=== PATIENT | male | born 1965 | race African-American/Black ===

== ENCOUNTER → 2023-12-03 | Outpatient (CLI) | payer MEDICAID | END | disposition home or self-care (01) | LOC: EDBD 12:19 → LAB 12:19 | PROVIDERS: ATTEND Urology | DX: N40.1 Benign prostatic hyperplasia with lower urinary tract symptoms (principal) | CPT/HCPCS: 84153 ==

== ENCOUNTER 2024-03-15 08:15 | Day surgery (SDC) | payer MEDICAID ==
[2024-03-10 11:29] LABS: Urine Bacteria None Seen /hpf (None Seen)
[2024-03-10 12:09] LABS: INR 1.05 (0.9-1.15); Partial Thromboplastin Time 28.7 SEC (24.5-34.5); Prothrombin Time 11.1 sec (9.3-11.8)
[2024-03-10 12:10] LABS: Alanine Aminotransferase 29 U/L (7-40); Albumin 4.6 g/dL (3.2-4.8); Alkaline Phosphatase 97 U/L (46-116); Anion Gap 4 (5-15); Aspartate Aminotransferase 28 U/L (13-40); BUN/Creatinine Ratio 14.4 (10.0-20.0); Bilirubin, Total 0.5 mg/dL (0.2-1.0); Blood Urea Nitrogen 16 mg/dL (9-23); Calcium 9.6 mg/dL (8.5-10.1); Carbon Dioxide 30 mmol/L (20-30); Chloride 108 mmol/L (98-107); Glucose 92 mg/dL (74-106); Potassium 4.4 mmol/L (3.5-5.1); Sodium 142 mmol/L (136-145); Total Protein 7.2 g/dL (5.7-8.2)
[2024-03-10 12:11] LABS: Basophils # (auto) 0 10 ^3/uL (0-0.2); Basophils % (auto) 0.6 % (0.0-2.0); Eosinophils # (auto) 0.2 10 ^3/uL (0-0.8); Eosinophils % (auto) 3.6 % (0.0-7.0); Hematocrit 44.3 % (41.0-53.0); Hemoglobin 14.8 g/dL (13.5-17.5); Lymphocytes # (auto) 1.6 10 ^3/uL (0.4-5.4); Lymphocytes % (auto) 29.8 % (10.0-50.0); Mean Corpuscular Hemoglobin 31.6 pg (28.0-32.0); Mean Corpuscular Hgb Conc. 33.5 g/dL (32.0-36.0); Mean Corpuscular Volume 94.2 fL (80.0-100.0); Monocytes # (auto) 0.5 10 ^3/uL (0-1.3); Monocytes % (auto) 8.3 % (0.0-12.0); Neutrophils # (auto) 3.1 10 ^3/uL (1.6-8.6); Neutrophils % (auto) 57.7 % (37.0-80.0); Nucleated Red Blood Cells % 0.1 %; Red Cell Distribution Width 14.6 % (11.8-14.3); White Blood Cell 5.4 10^3/uL (4.4-10.8)
[2024-03-10 12:15] LABS: Urine Blood Negative /uL (Negative); Urine Clarity Clear (Clear); Urine Color Yellow (Yellow); Urine Mucus FEW (None Seen); Urine Protein, UAD TRACE (Negative); Urine Specific Gravity 1.031 (1.001-1.035); Urine Urobilinogen Normal (Negative); Urine WBC 18 /hpf (0 - 3); Urine pH 6.5 (5.0-9.0)
[~2024-03-15] VITALS: Ht 177.8 cm; Wt 77.1 kg
[~2024-03-15 08:15] MED LIST: AMLO1TAB22 PO; ASPI-378 OR; ATOR20TA PO; LISI20TA56 PO; TAMS-35 PO
[2024-03-15] MEDS ORDERED: MIDAZOLAM HCL 2MG/2ML 2ml VIAL (1mg/ml) ONE (09:14)
[2024-03-15] MEDS ORDERED: fentaNYL CITRATE 100 MCG/2 ML VL ONE (09:14)
[2024-03-15] MEDS ORDERED: SODIUM CHLORIDE LOCK 10 ML ONE (09:15)
[2024-03-15] MEDS ORDERED: ONDANSETRON HCL 4 MG/2 ML VIAL ONE (09:15)
[2024-03-15] MEDS ORDERED: PROPOFOL 10 MG/ML 20 ML IV ONE ×2 (09:15→10:52)
[2024-03-15] MEDS ORDERED: KETAMINE 50mg/ML 1ml syringe ONE (09:20)
[2024-03-15] MEDS ORDERED: CIPROFLOXACIN 400MG/200ML 200 ML IV ONE (09:42)
[2024-03-15] MEDS ORDERED: LIDOCAINE 1% INJ PF 5ML AMP ONE ×2 (09:59→10:29)
[2024-03-15] MEDS ORDERED: LIDOCAINE HCL 2% TOP JELLY 5ML TOP ONE (09:59)
[2024-03-15] MEDS ORDERED: HYDROmorphone HCL 2 MG/ML VL/or syr IV PRN ×2 (10:00)
[2024-03-15] MEDS ORDERED: METOCLOPRAMIDE HCL 5MG/ml INJ 2ml VIAL IV ONE (10:00)
[2024-03-15] MEDS ORDERED: KETOROLAC TROMETH 30 MG/ML 1ML VIAL IV ONE (10:00)
[2024-03-15] MEDS ORDERED: MORPHINE SULFATE INJ 2 MG/ml SYRG IV PRN (10:00)
[2024-03-15] MEDS ORDERED: MEPERIDINE HCL (50 MG/ML) 1 ML VIAL ONE (10:05)
[2024-03-15 11:02] VITALS: PULSE 72; RESP 12; O2SAT 100
[2024-03-15] MEDS: hydrALAZINE HCL 20 MG/ML VL ONE (12:29)
[2024-03-15] MEDS ORDERED: hydrALAZINE HCL 20 MG/ML VL IV ONE (12:30)
[2024-03-15 13:00] VITALS: BP 154/96; PULSE 64; RESP 17; O2SAT 96
== END 2024-03-15 13:30 | disposition home or self-care (01) ==
LOC: SUR 08:15
PROVIDERS: ATTEND Urology
DX: N40.1 Benign prostatic hyperplasia with lower urinary tract symptoms (principal); J44.9 Chronic obstructive pulmonary disease, unspecified; I10 Essential (primary) hypertension; E78.5 Hyperlipidemia, unspecified; F41.9 Anxiety disorder, unspecified; F32.A Depression, unspecified; F17.210 Nicotine dependence, cigarettes, uncomplicated; G89.29 Other chronic pain; Z79.82 Long term (current) use of aspirin; Z79.899 Other long term (current) drug therapy; Z98.890 Other specified postprocedural states
CPT/HCPCS: 36415; 52441; 52442; 80053; 81001; 85025; 85610; 85730; 87086; 93005; C1769; J0360; J0744; J2175; J2250; J2405; J2704; J3010; J7030; L8699

== ENCOUNTER 2024-04-28 16:57 | Inpatient (IN) | payer MEDICAID ==
[~2024-04-28] VITALS: Ht 177.8 cm; Wt 76.3 kg
[2024-04-28 17:57] LABS: Urine Bacteria None Seen /hpf (None Seen)
[2024-04-28 18:11] LABS: Urine Blood 2+ /uL (Negative); Urine Clarity Clear (Clear); Urine Color Yellow (Yellow); Urine Mucus FEW (None Seen); Urine Protein, UAD 1+ (Negative); Urine Specific Gravity 1.027 (1.001-1.035); Urine Urobilinogen Normal (Negative); Urine WBC 50 /hpf (0 - 3); Urine pH 5.5 (5.0-9.0)
[2024-04-28 18:14] LABS: Basophils # (auto) 0 10 ^3/uL (0-0.2); Basophils % (auto) 0.8 % (0.0-2.0); Eosinophils # (auto) 0.3 10 ^3/uL (0-0.8); Eosinophils % (auto) 6.8 % (0.0-7.0); Hematocrit 42.2 % (41.0-53.0); Hemoglobin 14.3 g/dL (13.5-17.5); Lymphocytes # (auto) 1.5 10 ^3/uL (0.4-5.4); Lymphocytes % (auto) 30.1 % (10.0-50.0); Mean Corpuscular Hemoglobin 31.9 pg (28.0-32.0); Mean Corpuscular Hgb Conc. 33.9 g/dL (32.0-36.0); Mean Corpuscular Volume 94.1 fL (80.0-100.0); Monocytes # (auto) 0.4 10 ^3/uL (0-1.3); Neutrophils # (auto) 2.7 10 ^3/uL (1.6-8.6); Neutrophils % (auto) 54.3 % (37.0-80.0); Nucleated Red Blood Cells % 0.1 %; Red Blood Cells 4.49 10^6/uL (4.5-5.90); Red Cell Distribution Width 14.6 % (11.8-14.3); White Blood Cell 4.9 10^3/uL (4.4-10.8)
[2024-04-28 18:25] LABS: Chloride 112 mmol/L (98-107); Potassium 3.9 mmol/L (3.5-5.1); Sodium 141 mmol/L (136-145)
[2024-04-28 18:26] LABS: Anion Gap 2 (5-15); Carbon Dioxide 27 mmol/L (20-30)
[2024-04-28 18:27] LABS: Calcium 9.5 mg/dL (8.5-10.1)
[2024-04-28 18:31] LABS: Glucose 104 mg/dL (74-106)
[2024-04-28 18:32] LABS: BUN/Creatinine Ratio 11.7 (10.0-20.0); Blood Urea Nitrogen 13 mg/dL (9-23)
[2024-04-28 20:30] VITALS: PULSE 64; RESP 16; O2SAT 97
[2024-04-28] MEDS: cefTRIAXone 1GM/50ML D5W 50 ML IV ONE (20:36)
[2024-04-28] MEDS ORDERED: ACETAMINOPHEN 325 MG TAB PO PRN (21:15)
[2024-04-28] MEDS ORDERED: hydrALAZINE HCL 20 MG/ML VL IV PRN (21:15)
[2024-04-28] MEDS ORDERED: ONDANSETRON HCL 4 MG/2 ML VIAL IV PRN (21:15)
[2024-04-28] MEDS ORDERED: DOCUSATE SOD 100 MG CAP PO PRN (21:15)
[2024-04-28] MEDS: SODIUM CHLOR 0.9% PF (SALINE LOCK) 10ML VIAL/SYR IV SCH (21:56)
[2024-04-28] MEDS: ATORVASTATIN 20 MG TAB PO SCH (21:59)
[2024-04-28] MEDS ORDERED: MORPHINE SULFATE INJ 2 MG/ml SYRG IV PRN (23:45)
[2024-04-28] MEDS ORDERED: NITROGLYCERIN 0.4 MG SL TAB SL PRN (23:45)
[2024-04-29 04:30] VITALS: BP 143/98; PULSE 74; RESP 18; TEMP 98.3; O2SAT 99
[2024-04-29 05:00] VITALS: BP 141/97; PULSE 74; RESP 18; TEMP 98.3; O2SAT 98
[2024-04-29 07:07] LABS: Basophils # (auto) 0 10 ^3/uL (0-0.2); Basophils % (auto) 0.6 % (0.0-2.0); Eosinophils # (auto) 0.4 10 ^3/uL (0-0.8); Eosinophils % (auto) 7.1 % (0.0-7.0); Hematocrit 38.8 % (41.0-53.0); Lymphocytes % (auto) 37.6 % (10.0-50.0); Mean Corpuscular Hemoglobin 31.7 pg (28.0-32.0); Mean Corpuscular Hgb Conc. 33.5 g/dL (32.0-36.0); Mean Corpuscular Volume 94.5 fL (80.0-100.0); Monocytes # (auto) 0.5 10 ^3/uL (0-1.3); Monocytes % (auto) 8.9 % (0.0-12.0); Neutrophils # (auto) 2.5 10 ^3/uL (1.6-8.6); Neutrophils % (auto) 45.8 % (37.0-80.0); Nucleated Red Blood Cells % 0.1 %; Red Blood Cells 4.11 10^6/uL (4.5-5.90); Red Cell Distribution Width 14.6 % (11.8-14.3); White Blood Cell 5.4 10^3/uL (4.4-10.8)
[2024-04-29 07:10] LABS: Alanine Aminotransferase 15 U/L (7-40); Albumin 3.6 g/dL (3.2-4.8); Alkaline Phosphatase 86 U/L (46-116); Anion Gap 4 (5-15); Aspartate Aminotransferase 14 U/L (13-40); BUN/Creatinine Ratio 15.5 (10.0-20.0); Bilirubin, Total 0.2 mg/dL (0.2-1.0); Blood Urea Nitrogen 18 mg/dL (9-23); Calcium 8.8 mg/dL (8.5-10.1); Carbon Dioxide 27 mmol/L (20-30); Chloride 111 mmol/L (98-107); Glucose 132 mg/dL (74-106); Potassium 3.6 mmol/L (3.5-5.1); Sodium 142 mmol/L (136-145); Total Protein 5.6 g/dL (5.7-8.2)
[2024-04-29 09:00] VITALS: BP 142/92; PULSE 75; RESP 18; TEMP 97.7; O2SAT 99
[2024-04-29] MEDS: cefTRIAXone 1GM/50ML D5W 50 ML IV SCH (09:50)
[2024-04-29] MEDS: ASPirin 81 mg TAB PO SCH (09:51)
[2024-04-29 13:00] VITALS: BP 164/107; PULSE 50; RESP 18; TEMP 97.6; O2SAT 100
[2024-04-29] MEDS: HYDROcodone-ACET 5/325MG TAB PO PRN (13:02)
[2024-04-29] MEDS: LISINOPRIL 20 MG TAB PO ONE (13:11)
[2024-04-29] MEDS: amLODIPine BESYLATE 5 MG TAB PO ONE (13:12)
[2024-04-29] MEDS ORDERED: CEFD300C2 PO (16:27)
[2024-04-29 17:00] VITALS: BP 146/90; PULSE 44; RESP 16; TEMP 97.3; O2SAT 99
[2024-04-29] MEDS: TAMSULOSIN HYDROCHLORIDE 0.4 MG CAP PO SCH (19:04)
[2024-04-30] MEDS ORDERED: LISINOPRIL 20 MG TAB PO SCH (10:00)
[2024-04-30] MEDS ORDERED: amLODIPine BESYLATE 5 MG TAB PO SCH (10:00)
== END 2024-04-29 19:50 | disposition home or self-care (01) | DRG 463 ==
LOC: ER 16:57 → OVERFLOW 22:37 → WEST WING 04-29 02:35
PROVIDERS: ADMIT Internal Medicine; ATTEND Internal Medicine
DX: N30.00 Acute cystitis without hematuria (principal); F17.210 Nicotine dependence, cigarettes, uncomplicated; I10 Essential (primary) hypertension; J44.9 Chronic obstructive pulmonary disease, unspecified; R39.11 Hesitancy of micturition; N40.1 Benign prostatic hyperplasia with lower urinary tract symptoms; Z79.899 Other long term (current) drug therapy
CPT/HCPCS: 36415; 74176; 80048; 80053; 81001; 85025; 87086; G0378